=== PATIENT | male | born 1985 | race Two or more races ===

== ENCOUNTER 2023-01-10 21:25 | Inpatient (IN) ==
[2023-01-10] MEDS ORDERED: ACETAMINOPHEN 1,000 MG/100 ML VIAL IV STA (22:17)
[2023-01-10] MEDS ORDERED: ONDANSETRON INJ 2 MG/ML 2 ML VIAL IV STA (22:17)
--- NOTE | 2023-01-10 22:22 | Emergency Department Note ---
History of Present Illness General Chief complaint: Illness Stated complaint: ILLNESS Time Seen by Provider: 01/10/23 22:09 History of Present Illness Maximum Pain Intensity: 10 This is a 37-year-old male presenting to the emergency department for evaluation of nausea, vomiting, dehydration, diarrhea, and chills. Patient was recently started on Bactrim twice daily for 1 month through [facility]. He has been having some lower abdominal discomfort. He took the first dose of the medication around 5 PM, and then ate dinner around 5:30 PM. Shortly after eating he began with symptoms. He rates his discomfort a 10/10. No history of abdominal surgery. No known fever. Patient is hypotensive on arrival to triage and was immediately placed into room C6. Home Medications Medication Instructions Recorded Confirmed Type sulfamethoxazole 800 1 tab PO BID 01/10/23 01/10/23 History mg-trimethoprim 160 mg tablet Allergies Allergy/AdvReac Type Severity Reaction Status Date / Time No Known Allergies Allergy Verified 01/10/23 22:16 Past Med/Surg History Medical History No pertinent past medical history Surgical History No pertinent past surgical history Social History Smoking Status: Light tobacco smoker Tobacco Type: Cigarettes Cigarettes Per Day: 7; Second Hand Exposure: Yes; Do You Dip or Chew Tobacco: No; Tobacco Cessation Education Requested by Patient: No Hx Alcohol Use: No Hx Substance Use: No Preferred Language: Slovenian Communication Ability: Effective Manager Commercial Required: No Beliefs That Will Affect Care: None Current Living Situation: Spouse and Family Other Information That Helps Us Care for You: No Feels Safe at Home: Yes Safety Concerns: Feels Safe At This Time Assistive Devices: None Review of Systems A total of 10 systems reviewed and were otherwise negative Physical Exam Vital Signs Vital Signs - 24 hr 01/10/23 21:42 01/10/23 22:15 01/10/23 22:33 Temperature 36.7 C Temperature Source Oral Pulse Rate 90 94 H Pulse Rate [Right Finger] 102 H Pulse Rhythm [Right Finger] Regular Pulse Strength [Right Finger] Normal Respiratory Rate 18 21 Respiratory Effort / Characteristics Non-Labored Spontaneous Non-Labored Spontaneous Respiratory Depth Normal Normal Respiratory Pattern Regular Regular Blood Pressure 78/45 L Blood Pressure [Left Arm] 94/56 L Blood Pressure Mean 56 Blood Pressure Mean [Left Arm] 68 Blood Pressure Position Sitting Blood Pressure Position [Left Arm] Pulse Oximetry 100 99 Oxygen Delivery Method Room Air Room Air Sepsis Recent Fever Within 48 Hours No Sepsis New/Unexplained Change in Mental Status N/A Sepsis Action Taken by Nursing No Action Required 01/11/23 00:32 01/11/23 00:50 01/11/23 01:50 Temperature Temperature Source Pulse Rate Pulse Rate [Right Finger] 91 H 94 H Pulse Rhythm [Right Finger] Regular Regular Pulse Strength [Right Finger] Normal Normal Respiratory Rate 19 19 Respiratory Effort / Characteristics Non-Labored Spontaneous Non-Labored Spontaneous Respiratory Depth Normal Normal Respiratory Pattern Regular Regular Blood Pressure Blood Pressure [Left Arm] 77/53 L 90/49 L 88/45 L Blood Pressure Mean Blood Pressure Mean [Left Arm] 61 62 59 Blood Pressure Position Blood Pressure Position [Left Arm] Lying Pulse Oximetry 97 100 Oxygen Delivery Method Room Air Room Air Sepsis Recent Fever Within 48 Hours Sepsis New/Unexplained Change in Mental Status Sepsis Action Taken by Nursing VITALS: Vitals are noted on the nurse's note and reviewed by myself. Vital signs with hypotension GENERAL: Well-developed, well-nourished, male, who is ill-appearing but not toxic. He does have occasional shaking chills/rigors. HEAD: Normocephalic atraumatic. MOUTH: Mucous membranes dry NECK: Supple without nuchal rigidity. No lymphadenopathy. No thyromegaly. Cervical spine is nontender. HEART: Regular rate and rhythm without murmurs gallops or rubs. LUNGS: Clear to auscultation bilaterally without wheezes, rales or rhonchi. No retractions or accessory muscle use. ABDOMEN: Positive normal bowel sounds x 4. Soft, nontender, without masses or organomegaly. No guarding or rebound tenderness. MUSCULOSKELETAL: No muscle atrophy, erythema, or edema noted. Full range of motion in all extremities. NEURO: Patient was alert and oriented to person place and time. CN II through XII grossly intact. GCS 15. Course Administered Medications Lactated Ringer's (Lr) 1,000 mls @ 125 mls/hr IV .Q8H JESSICA Stop: 01/11/23 19:12 Last Admin: 01/11/23 04:03 Dose: 125 mls/hr Documented By: ANITHA Discontinued Medications Sodium Chloride (Nss) 1,000 mls @ 999 mls/hr IV .Q1H1M JESSIAC Stop: 01/11/23 00:10 Last Infusion: 01/11/23 00:05 Dose: 0 mls/hr Documented By: Admin: 01/10/23 22:33 Dose: 999 mls/hr Documented By: Infusion: 01/10/23 22:33 Dose: 999 mls/hr Documented By: Admin: 01/10/23 22:29 Dose: 999 mls/hr Documented By: JAVIER Acetaminophen (Ofirmev) 1,000 mg in 100 mls @ 400 mls/hr IV NOW STA Stop: 01/10/23 22:31 Last Infusion: 01/11/23 00:05 Dose: 0 mls/hr Documented By: Admin: 01/10/23 22:31 Dose: 400 mls/hr Documented By: JAVIER Piperacillin Sod/Tazobactam Sod (Zosyn) 4.5 gm in 100 mls @ 200 mls/hr IV NOW ONE Stop: 01/11/23 01:05 Last Infusion: 01/11/23 01:26 Dose: 0 mls/hr Documented By: Admin: 01/11/23 00:45 Dose: 200 mls/hr Documented By: JAVIER Sodium Chloride (Nss) 1,000 mls @ 999 mls/hr IV .Q1H1M JESSICA Stop: 01/11/23 01:45 Last Infusion: 01/11/23 01:49 Dose: 0 mls/hr Documented By: Admin: 01/11/23 00:45 Dose: 999 mls/hr Documented By: JAVIER Ondansetron HCl (Ondansetron Inj 2 Mg/Ml 2 Ml Vial) 4 mg IV NOW STA Stop: 01/10/23 22:18 Last Admin: 01/10/23 22:29 Dose: 4 mg Documented By: JAVIER Medical Decision Making Differential Diagnosis Differential diagnosis: Etiologies such as biliary colic, cholecystitis, hepatitis, pancreatitis, cardiac disease, pancreatitis, gastritis, peptic ulcer disease, appendicitis, cystitis, diverticulitis, mesenteric ischemia, inflammatory bowel disease, ileus, bowel obstruction, testicular/adnexal torsion, aortic pathology, shingles, as well as others were considered Laboratory Data 01/10/23:10 01/10/23 22:10 Lab Results 01/10/23 01/10/23 01/10/23 Range/Units 22:10 22:10 22:10 WBC 8.03 (4.8-10.8) K/ul RBC 5.40 (4.70-6.10) M/uL Hgb 15.5 (14.0-18.0) g/dl Hct 45.0 (42.0-52.0) % MCV 83.3 (80.0-100.0) fL MCH 28.7 (25.0-34.0) pg MCHC 34.4 (32.0-36.0) g/dL RDW Std Deviation 36.1 L (36.4-46.3) fL RDW Coeff of Clair 11.9 (11.5-14.5) % Plt Count 220 (130-400) K/uL MPV 10.0 (9.4-12.4) fL Immature Gran % (Auto) 0.4 % Neut % (Auto) 86.5 % Lymph % (Auto) 10.5 % Pike % (Auto) 2.5 % Eos % (Auto) 0.0 % Baso % (Auto) 0.1 % Neut # (Auto) 6.95 H (1.40-6.50) K/uL Lymph # (Auto) 0.84 L (1.20-3.40) K/uL Pike # (Auto) 0.20 (0.11-0.59) K/uL Eos # (Auto) 0.00 (0.00-0.50) K/uL Baso # (Auto) 0.01 (0.00-0.20) K/uL Immature Gran # (Auto) 0.03 (0.01-0.20) K/uL Sodium 138 (136-145) mmol/L Potassium 3.6 (3.5-5.1) mmol/L Chloride 100 (98-107) mmol/L Carbon Dioxide 29 (21-32) mmol/L Anion Gap 9 (3-11) BUN 18 (6-23) mg/dl Creatinine 1.28 (0.6-1.4) mg/dl Est Cr Clr Drug Dosing 64.0 ml/min Est GFR ( Amer) 82.9 ml/min Est GFR (Non-Af Amer) 71.5 ml/min BUN/Creatinine Ratio 14.1 (10-20) Glucose 93 (70-99(Fasting)) mg/dl Lactate (0.4-2.0) mmol/L Calcium 9.8 (8.6-10.3) mg/dl Magnesium 2.0 (1.7-2.4) mg/dl Total Bilirubin 0.5 (0.2-1.0) mg/dl AST 24 (13-39) U/L ALT 19 (7-52) U/L Alkaline Phosphatase 67 (34-104) U/L Total Protein 8.8 H (6.0-8.3) gm/dl Albumin 5.0 (3.4-5.0) gm/dl Globulin 3.8 (2.5-4.0) gm/dl Albumin/Globulin Ratio 1.3 (0.9-2) Random Cortisol 30.39 mcg/dl Urine Color Urine Appearance (Clear) Urine pH (4.5-7.5) Ur Specific [place] (1.000-1.030) Urine Protein (Negative) Urine Glucose (UA) (Negative) Urine Ketones (Negative) Urine Blood (Negative) Urine Nitrite (Negative) Urine Bilirubin (Negative) Urine Urobilinogen (Negative) Ur Leukocyte Esterase (Negative) Urine WBC (Auto) (0-5) /hpf Urine RBC (Auto) (0-4) /hpf U Hyaline Cast (Auto) (0-5) /lpf U Epithel Cells (Auto) (0-5) /lpf Urine Bacteria (Auto) (Negative) Ur Renal Epithelial Cell Urine Mucus (None Prsent) Stl C. cayetanensis PCR (NotDetected) Stool Rotavirus A PCR (NotDetected) Stl Adenov F 40/41 PCR (NotDetected) Stool Astrovirus (PCR) (NotDetected) Stool Campylobacter PCR (NotDetected) Stl C. diff Tox B Gene (Neg) Stool Cryptosporidium PCR (NotDetected) Stl E.coli Shiga Tox PCR (NotDetected) Stl Enterotoxigenic E PCR (NotDetected) Stool EPEC (PCR) (NotDetected) Stool EAEC (PCR) (NotDetected) Stl E. histolytica PCR (NotDetected) Stool Giardia Lamblia PCR (NotDetected) Stool Salmonella PCR (NotDetected) Stool Sapovirus (PCR) (NotDetected) Stl P. shigelloides PCR (NotDetected) Stl Shigella/EIEC PCR (NotDetected) St Y.enterocolitica PCR (NotDetected) Stool Vibrio (PCR) (NotDetected) Stl Vibrio cholerae PCR (NotDetected) Stl Norovirus GI/GII PCR (NotDetected) Adenovirus (PCR) (NotDetected) B. pertussis DNA (PCR) (NotDetected) B.parapertussis DNA PCR (NotDetected) C. pneumoniae DNA (PCR) (NotDetected) Coronavirus OC43 (PCR) (NotDetected) Coronavirus HKU1 (PCR) (NotDetected) Coronavirus 229E (PCR) (NotDetected) SARS-CoV-2 (PCR) (NotDetected) Coronavirus NL63 (PCR) (NotDetected) Human Metapneumovir PCR (NotDetected) Influenza Type A (PCR) (NotDetected) Influenza Type B (PCR) (NotDetected) M. pneumoniae (PCR) (NotDetected) Parainfluenza 1 (PCR) (NotDetected) Parainfluenza 2 (PCR) (NotDetected) Parainfluenza 3 (PCR) (NotDetected) Parainfluenza 4 (PCR) (NotDetected) RSV (PCR) (NotDetected) Entero/Rhino (PCR) (NotDetected) 01/10/23 01/10/23 01/10/23 Range/Units 22:35 23:00 23:00 WBC (4.8-10.8) K/ul RBC (4.70-6.10) M/uL Hgb (14.0-18.0) g/dl Hct (42.0-52.0) % MCV (80.0-100.0) fL MCH (25.0-34.0) pg MCHC (32.0-36.0) g/dL RDW Std Deviation (36.4-46.3) fL RDW Coeff of Clair (11.5-14.5) % Plt Count (130-400) K/uL MPV (9.4-12.4) fL Immature Gran % (Auto) % Neut % (Auto) % Lymph % (Auto) % Pike % (Auto) % Eos % (Auto) % Baso % (Auto) % Neut # (Auto) (1.40-6.50) K/uL Lymph # (Auto) (1.20-3.40) K/uL Pike # (Auto) (0.11-0.59) K/uL Eos # (Auto) (0.00-0.50) K/uL Baso # (Auto) (0.00-0.20) K/uL Immature Gran # (Auto) (0.01-0.20) K/uL Sodium (136-145) mmol/L Potassium (3.5-5.1) mmol/L Chloride (98-107) mmol/L Carbon Dioxide (21-32) mmol/L Anion Gap (3-11) BUN (6-23) mg/dl Creatinine (0.6-1.4) mg/dl Est Cr Clr Drug Dosing ml/min Est GFR ( Amer) ml/min Est GFR (Non-Af Amer) ml/min BUN/Creatinine Ratio (10-20) Glucose (70-99(Fasting)) mg/dl Lactate (0.4-2.0) mmol/L Calcium (8.6-10.3) mg/dl Magnesium (1.7-2.4) mg/dl Total Bilirubin (0.2-1.0) mg/dl AST (13-39) U/L ALT (7-52) U/L Alkaline Phosphatase (34-104) U/L Total Protein (6.0-8.3) gm/dl Albumin (3.4-5.0) gm/dl Globulin (2.5-4.0) gm/dl Albumin/Globulin Ratio (0.9-2) Random Cortisol mcg/dl Urine Color Dark Yellow Urine Appearance Cloudy A (Clear) Urine pH 5.5 (4.5-7.5) Ur Specific [place] 1.025 (1.000-1.030) Urine Protein 2+ H (Negative) Urine Glucose (UA) Negative (Negative) Urine Ketones Trace H (Negative) Urine Blood Negative (Negative) Urine Nitrite Negative (Negative) Urine Bilirubin 1+ H (Negative) Urine Urobilinogen Negative (Negative) Ur Leukocyte Esterase Trace H (Negative) Urine WBC (Auto) 5-10 H (0-5) /hpf Urine RBC (Auto) 5-10 H (0-4) /hpf U Hyaline Cast (Auto) 10-30 H (0-5) /lpf U Epithel Cells (Auto) >30 H (0-5) /lpf Urine Bacteria (Auto) Negative (Negative) Ur Renal Epithelial Cell Not Reportable Urine Mucus Present A (None Prsent) Stl C. cayetanensis PCR Not Detected (NotDetected) Stool Rotavirus A PCR Not Detected (NotDetected) Stl Adenov F 40/41 PCR Not Detected (NotDetected) Stool Astrovirus (PCR) Not Detected (NotDetected) Stool Campylobacter PCR Not Detected (NotDetected) Stl C. diff Tox B Gene (Neg) Stool Cryptosporidium PCR Not Detected (NotDetected) Stl E.coli Shiga Tox PCR Not Detected (NotDetected) Stl Enterotoxigenic E PCR Not Detected (NotDetected) Stool EPEC (PCR) Not Detected (NotDetected) Stool EAEC (PCR) Not Detected (NotDetected) Stl E. histolytica PCR Not Detected (NotDetected) Stool Giardia Lamblia PCR Not Detected (NotDetected) Stool Salmonella PCR Not Detected (NotDetected) Stool Sapovirus (PCR) Not Detected (NotDetected) Stl P. shigelloides PCR Not Detected (NotDetected) Stl Shigella/EIEC PCR Not Detected (NotDetected) St Y.enterocolitica PCR Not Detected (NotDetected) Stool Vibrio (PCR) Not Detected (NotDetected) Stl Vibrio cholerae PCR Not Detected (NotDetected) Stl Norovirus GI/GII PCR Not Detected (NotDetected) Adenovirus (PCR) Not Detected (NotDetected) B. pertussis DNA (PCR) Not Detected (NotDetected) B.parapertussis DNA PCR Not Detected (NotDetected) C. pneumoniae DNA (PCR) Not Detected (NotDetected) Coronavirus OC43 (PCR) Not Detected (NotDetected) Coronavirus HKU1 (PCR) Not Detected (NotDetected) Coronavirus 229E (PCR) Not Detected (NotDetected) SARS-CoV-2 (PCR) Not Detected (NotDetected) Coronavirus NL63 (PCR) Not Detected (NotDetected) Human Metapneumovir PCR Not Detected (NotDetected) Influenza Type A (PCR) Not Detected (NotDetected) Influenza Type B (PCR) Not Detected (NotDetected) M. pneumoniae (PCR) Not Detected (NotDetected) Parainfluenza 1 (PCR) Not Detected (NotDetected) Parainfluenza 2 (PCR) Not Detected (NotDetected) Parainfluenza 3 (PCR) Not Detected (NotDetected) Parainfluenza 4 (PCR) Not Detected (NotDetected) RSV (PCR) Not Detected (NotDetected) Entero/Rhino (PCR) Not Detected (NotDetected) 01/10/23 01/10/23 01/11/23 Range/Units 23:07 23:11 01:22 WBC (4.8-10.8) K/ul RBC (4.70-6.10) M/uL Hgb (14.0-18.0) g/dl Hct (42.0-52.0) % MCV (80.0-100.0) fL MCH (25.0-34.0) pg MCHC (32.0-36.0) g/dL RDW Std Deviation (36.4-46.3) fL RDW Coeff of Clair (11.5-14.5) % Plt Count (130-400) K/uL MPV (9.4-12.4) fL Immature Gran % (Auto) % Neut % (Auto) % Lymph % (Auto) % Pike % (Auto) % Eos % (Auto) % Baso % (Auto) % Neut # (Auto) (1.40-6.50) K/uL Lymph # (Auto) (1.20-3.40) K/uL [place] # (Auto) (0.11-0.59) K/uL Eos # (Auto) (0.00-0.50) K/uL Baso # (Auto) (0.00-0.20) K/uL Immature Gran # (Auto) (0.01-0.20) K/uL Sodium (136-145) mmol/L Potassium (3.5-5.1) mmol/L Chloride (98-107) mmol/L Carbon Dioxide (21-32) mmol/L Anion Gap (3-11) BUN (6-23) mg/dl Creatinine (0.6-1.4) mg/dl Est Cr Clr Drug Dosing ml/min Est GFR ( Amer) ml/min Est GFR (Non-Af Amer) ml/min BUN/Creatinine Ratio (10-20) Glucose (70-99(Fasting)) mg/dl Lactate 3.4 H* 0.9 (0.4-2.0) mmol/L Calcium (8.6-10.3) mg/dl Magnesium (1.7-2.4) mg/dl Total Bilirubin (0.2-1.0) mg/dl AST (13-39) U/L ALT (7-52) U/L Alkaline Phosphatase (34-104) U/L Total Protein (6.0-8.3) gm/dl Albumin (3.4-5.0) gm/dl Globulin (2.5-4.0) gm/dl Albumin/Globulin Ratio (0.9-2) Random Cortisol mcg/dl Urine Color Urine Appearance (Clear) Urine pH (4.5-7.5) Ur Specific [place] (1.000-1.030) Urine Protein (Negative) Urine Glucose (UA) (Negative) Urine Ketones (Negative) Urine Blood (Negative) Urine Nitrite (Negative) Urine Bilirubin (Negative) Urine Urobilinogen (Negative) Ur Leukocyte Esterase (Negative) Urine WBC (Auto) (0-5) /hpf Urine RBC (Auto) (0-4) /hpf U Hyaline Cast (Auto) (0-5) /lpf U Epithel Cells (Auto) (0-5) /lpf Urine Bacteria (Auto) (Negative) Ur Renal Epithelial Cell Urine Mucus (None Prsent) Stl C. cayetanensis PCR (NotDetected) Stool Rotavirus A PCR (NotDetected) Stl Adenov F 40/41 PCR (NotDetected) Stool Astrovirus (PCR) (NotDetected) Stool Campylobacter PCR (NotDetected) Stl C. diff Tox B Gene Negative Cdiff Gene (Neg) Stool Cryptosporidium PCR (NotDetected) Stl E.coli Shiga Tox PCR (NotDetected) Stl Enterotoxigenic E PCR (NotDetected) Stool EPEC (PCR) (NotDetected) Stool EAEC (PCR) (NotDetected) Stl E. histolytica PCR (NotDetected) Stool Giardia Lamblia PCR (NotDetected) Stool Salmonella PCR (NotDetected) Stool Sapovirus (PCR) (NotDetected) Stl P. shigelloides PCR (NotDetected) Stl Shigella/EIEC PCR (NotDetected) St Y.enterocolitica PCR (NotDetected) Stool Vibrio (PCR) (NotDetected) Stl Vibrio cholerae PCR (NotDetected) Stl Norovirus GI/GII PCR (NotDetected) Adenovirus (PCR) (NotDetected) B. pertussis DNA (PCR) (NotDetected) B.parapertussis DNA PCR (NotDetected) C. pneumoniae DNA (PCR) (NotDetected) Coronavirus OC43 (PCR) (NotDetected) Coronavirus HKU1 (PCR) (NotDetected) Coronavirus 229E (PCR) (NotDetected) SARS-CoV-2 (PCR) (NotDetected) Coronavirus NL63 (PCR) (NotDetected) Human Metapneumovir PCR (NotDetected) Influenza Type A (PCR) (NotDetected) Influenza Type B (PCR) (NotDetected) M. pneumoniae (PCR) (NotDetected) Parainfluenza 1 (PCR) (NotDetected) Parainfluenza 2 (PCR) (NotDetected) Parainfluenza 3 (PCR) (NotDetected) Parainfluenza 4 (PCR) (NotDetected) RSV (PCR) (NotDetected) Entero/Rhino (PCR) (NotDetected) Imaging Data Radiologist's Impression: Abdomen/Pelvis CT 01/10/23 22:16 CT SCAN OF THE ABDOMEN AND PELVIS WITHOUT IV CONTRAST CLINICAL HISTORY: Lower abdominal pain. Nausea and vomiting. Diarrhea. COMPARISON STUDY: Abdominal CT dated 07/21/2022. TECHNIQUE: CT scan of the abdomen and pelvis is performed from the lung bases to the proximal femora. Images are reviewed in the axial, sagittal, and coronal planes. IV contrast was not administered for this examination. Note that the examination is suboptimal without oral and IV contrast. A dose lowering technique was utilized adhering to the principles of ALARA. CT DOSE: 415.92 mGy.cm FINDINGS: Lung bases: The heart is normal in size and without pericardial effusion. The lung bases are clear. Liver: The unenhanced liver is normal in size, contour, and attenuation. There is no intrahepatic biliary ductal dilatation. Gallbladder: Unremarkable. Spleen: Normal in size and attenuation. Pancreas: Unremarkable. Adrenal glands: Unremarkable. Kidneys: The unenhanced kidneys are normal in size and without hydronephrosis. There is a punctate nonobstructing right renal calculus. No left renal calculi are identified and there is no ureteral stone. There is no evidence of contour deforming renal mass lesion. Abdominal vasculature: The abdominal aorta is normal in course and caliber. Bowel: There is no bowel obstruction. The appendix is well-visualized and normal. Peritoneum: There is no intraperitoneal free air or abdominal ascites. Lymphadenopathy: None. Pelvic viscera: The bladder wall appears thickened. The prostate and seminal vesicles are normal as imaged. Skeletal structures: No lytic or blastic lesions are seen. IMPRESSION: 1. The bladder wall appears thickened. Correlate with clinical findings and urinalysis. 2. Punctate nonobstructing right renal calculus. 3. Additional findings as above. ACT 112: Negative or not required by law. Electronically signed by: Dick Hughes M.D. 01/10/2023 11:36 PM MDM Narrative Physical exam and history were performed. Nursing notes, EMR, and Medication List were personally reviewed. No social concerns were identified as barriers to patients care. Patient appears to have nausea, vomiting, diarrhea, and abdominal pain. He is hypotensive on arrival. Patient was seen immediately upon presentation to his room. IV access x2 was established. Patient was hydrated with 2 L normal saline and sent to CT scan for imaging. Viral URI panel was performed, and stool sample was collected. I did verify the patient was given Bactrim for 30 days, and I am suspicious this is related to a prostatitis diagnosis. Case was discussed with my attending physician, Dr. Warren, who remained involved in care decision making. Patient's blood work is as above and was reviewed. He does not have a significantly elevated white blood cell count or gross anemia. Lactic is elevated at 3.6 and patient was given an additional liter of fluids as he is having hypotensive episodes. Bio fire is negative. Stool studies are negative. Patient urine is quite concerning with mucus, caio ase, white cells, and protein. CT scan does not show obvious etiology of his symptoms, and does reveal a thickening bladder. Overall the patient does not appear well for discharge home. He continues to be hypotensive and his lactic is elevated. He was given Zosyn here in the ER. Repeat lactic did improved to 0.9. I have concern for sepsis. Case was discussed with the on-call hospitalist team, who agreed to evaluate the patient here in the ER. Please see their dictation for further patient course, plan, disposition. The chart was completed utilizing [employer] Speech Voice Recognition Software. Grammatical errors, random word insertions, pronoun errors, and incomplete sentences are an occasional consequence of this system due to software limitations, ambient noise, and hardware issues. Any formal questions or concerns about the content, text, or information contained within the body of this dictation should be directly addressed to the provider for clarification. . Impression & Plan Sepsis, Hypotension Discharge Plan Visit Data Chief Complaint: Illness Stated Complaint: ILLNESS ED Provider: Shamir Warren ED Midlevel Provider: Fredo Ramos Discharge Problem: Sepsis, Hypotension Patient Disposition: Admitted As Inpatient Discharge Instructions Interventions: ED Discharge Assessment Last Done: 01/11/23 02:52
[2023-01-10] MEDS: SODIUM CHLORIDE 0.9% 1,000 ML IV SCH ×2 (22:29→22:33)
[2023-01-10 22:34] LABS: Basophils # (auto) 0.01 K/uL (0.00-0.20); Basophils % (auto) 0.1 %; Hemoglobin 15.5 g/dl (14.0-18.0); Immature Granulocytes # (auto) 0.03 K/uL (0.01-0.20); Immature Granulocytes % (auto) 0.4 %; Lymphocytes # (auto) 0.84 K/uL (1.20-3.40); Lymphocytes % (auto) 10.5 %; Mean Corpuscular Hemoglobin 28.7 pg (25.0-34.0); Mean Corpuscular Hgb Conc 34.4 g/dL (32.0-36.0); Mean Corpuscular Volume 83.3 fL (80.0-100.0); Monocytes % (auto) 2.5 %; Neutrophils # (auto) 6.95 K/uL (1.40-6.50); Neutrophils % (auto) 86.5 %; Platelet Count 220 K/uL (130-400); RDW Coefficient of Variation 11.9 % (11.5-14.5); RDW Standard Deviation 36.1 fL (36.4-46.3); White Blood Count 8.03 K/ul (4.8-10.8)
[2023-01-10 22:42] LABS: Albumin Globulin Ratio 1.3 (0.9-2); BUN Creatinine Ratio 14.1 (10-20); Bilirubin,Total 0.5 mg/dl (0.2-1.0); Calcium 9.8 mg/dl (8.6-10.3); Est GFR (African American) 82.9 ml/min; Est GFR (Non-African American) 71.5 ml/min; Globulin 3.8 gm/dl (2.5-4.0); Potassium 3.6 mmol/L (3.5-5.1); Total Protein 8.8 gm/dl (6.0-8.3)
[2023-01-10 23:32] LABS: Appearance Urine Cloudy (Clear); Bacteria Urine Automated Negative (Negative); Blood Urine Negative (Negative); Color Urine Dark Yellow; Epithelial Cell Urine Auto >30 /lpf (0-5); Glucose Urine UA Negative (Negative); Ketones Urine Trace (Negative); Leukocyte Esterase Urine Trace (Negative); Nitrite Urine Negative (Negative); Protein Urine 2+ (Negative); Specific Gravity Urine 1.025 (1.000-1.030); Urobilinogen Urine Negative (Negative); pH Urine 5.5 (4.5-7.5)
--- NOTE | 2023-01-10 23:39 | CT Scan Report ---
CT SCAN OF THE ABDOMEN AND PELVIS WITHOUT IV CONTRAST CLINICAL HISTORY: Lower abdominal pain. Nausea and vomiting. Diarrhea. COMPARISON STUDY: Abdominal CT dated 07/21/2022. TECHNIQUE: CT scan of the abdomen and pelvis is performed from the lung bases to the proximal femora. Images are reviewed in the axial, sagittal, and coronal planes. IV contrast was not administered for this examination. Note that the examination is suboptimal without oral and IV contrast. A dose lower ing technique was utilized adhering to the principles of ALARA. CT DOSE: 415.92 mGy.cm FINDINGS: Lung bases: The heart is normal in size and without pericardial effusion. The lung bases are clear. Liver: The unenhanced liver is normal in size, contour, and attenuation. There is no intrahepatic mayito iary ductal dilatation. Gallbladder: Unremarkable. Spleen: Normal in size and attenuation. Pancreas: Unremarkable. Adrenal glands: Unremarkable. Kidneys: The unenhanced kidneys are normal in size and without hydronephrosis. There is a punctate no nobstructing right renal calculus. No left renal calculi are identified and there is no ureteral ston e. There is no evidence of contour deforming renal mass lesion. Abdominal vasculature: The abdominal aorta is normal in course and caliber. Bowel: There is no bowel obstruction. The appendix is well-visualized and normal. Peritoneum: There is no intraperitoneal free air or abdominal ascites. Lymphadenopathy: None. Pelvic viscera: The bladder wall appears thickened. The prostate and seminal vesicles are normal as i iliana. Skeletal structures: No lytic or blastic lesions are seen. IMPRESSION: 1. The bladder wall appears thickened. Correlate with clinical findings and urinalysis. 2. Punctate nonobstructing right renal calculus. 3. Additional findings as above. ACT 112: Negative or not required by law. Electronically signed by: Dick Hughes M.D. 01/10/2023 11:36 PM
[2023-01-10 23:43] LABS: Bilirubin Urine 1+ (Negative)
[2023-01-11 00:10] LABS: Mucus Urine Present (None Prsent)
[2023-01-11] MEDS ORDERED: PIPERACILLIN/TAZOBACTAM 4.5 GM/100 ML BAG IV ONE (00:36)
[2023-01-11] MEDS ORDERED: SODIUM CHLORIDE 0.9% 1,000 ML IV SCH (00:45)
[2023-01-11 00:55] LABS: Adenovirus F 40/41 PCR Not Detected (NotDetected); Astrovirus PCR Not Detected (NotDetected); Campylobacter PCR Not Detected (NotDetected); Cryptosporidium PCR Not Detected (NotDetected); Cyclospora cayetanensis PCR Not Detected (NotDetected); Entamoeba histolytica PCR Not Detected (NotDetected); Enteroaggregative E.coli(EAEC) Not Detected (NotDetected); Enteropathogenic E.coli (EPEC) Not Detected (NotDetected); Enterotoxigenic E.coli (ETEC) Not Detected (NotDetected); Giardia lamblia PCR Not Detected (NotDetected); Norovirus GI/GII PCR Not Detected (NotDetected); Plesiomonas shigelloides PCR Not Detected (NotDetected); Rotavirus A PCR Not Detected (NotDetected); Salmonella PCR Not Detected (NotDetected); Sapovirus PCR Not Detected (NotDetected); Shiga-like Toxin E.coli (STEC) Not Detected (NotDetected); Shigella/Enteroinvasive E.coli Not Detected (NotDetected); Vibrio cholerae PCR Not Detected (NotDetected); Vibrio species PCR Not Detected (NotDetected); Yersinia enterocolitica PCR Not Detected (NotDetected)
--- NOTE | 2023-01-11 01:37 | History & Physical Report ---
Date of Service January 11, 2023 Assessment & Plan (1) Hypotension: Plan: 37yo male with no significant past medical or surgical history presenting with acute onset of nausea/vomiting/diarrhea as well as chills, body aches and hypotension. Patient's symptoms described as fairly profound - suspect a large amount of volume loss in a short period of time likely contributing to hypotension. Patient does appear dry on exam as well. Renal function and electroltyes intact. Lactate has improved from 3.4 --> 0.9 after IVF Possible infectious source considered as well. Patient recently started on Bactrim for presumed acute bacterial prostatitis. Possible bacteremia? As above, biofire panel for URI as well as stool panel are NEGATIVE. Random Cortisol =30.39, do not suspect deficiency -Admit to PCU for now, low threshold for MICU transfer should blood pressure worsen -Follow cultures, blood and urine -Check Lipase, Procalcitonin with AM labs -Continue IVF - LR at 125mL/hr -Ceftriaxone 1gm IV daily -Zofran PRN -Tylenol PRN F/E/N - LR at 125mL/hr ordered, electrolytes WNL, regular diet as tolerated Ppx - Low risk for DVT Code - Full Dispo -Admit to PCU History of Present Illness Chief Complaint: Hypotension Primary Care Provider: [facility] Rufina Sloan is a pleasant 37yo male with no significant past medical or surgical history presenting with hypotension. Patient reports having some perineal, penile/testicular and pelvic pain for the last several days. He was seen by his PCPon 01/10/23 and had a urine sample obtained which revealed some hematuria. He was ultimately prescribed Bactrim BID x 4 week course for presumed prostatitis. Patient was overall feeling well today although he didn't eat much. At dinner he ate chacko pie with his family and took his first dose of Bactrim. Shortly after, around 19:45, he developed nausea with estimated 15-16 episodes of non-b loody/non-bilious vomiting as well as multiple episodes of watery diarrhea (every 10 minutes). His friend accompanied him to the ER. While in the waiting room the patient developed chills and rigors as well as pain in his back. He reports feeling dizzy as well. Otherwise denies fever, chest pain, cough, SOB. His family ate the same dinner and is not ill. No sick contacts. Has never been on Bactrim before. In the ER he was found to be hypotensive - BP 78/45. He has since been given 3L NSS with some blood pressure improvement - last measurement 88/45, similar in both extremities ER Course: NSS x 3L Zofran 4m IV Tylenol 1gm Zosyn 4.5gm Allergies Allergy/AdvReac Type Severity Reaction Status Date / Time No Known Allergies Allergy Verified 01/10/23 22:16 Home Medications Medication Instructions Recorded Confirmed Type sulfamethoxazole 800 1 tab PO BID 01/10/23 01/10/23 History mg-trimethoprim 160 mg tablet Past Med/Surg History Medical History No pertinent past medical history Surgical History No pertinent past surgical history Social History Smoking Status: Current every day smoker Tobacco Type: Cigarettes Preferred Language: Italian Feels Safe at Home: Yes Review of Systems Review of Systems: All systems reviewed & are unremarkable except as noted in HPI & below Physical Exam Physical Exam: General: patient appears ill, oriented x 4, answering questions appropriately and following commands. Occasional rigors. Skin: warm, dry, intact, no rashes or lesions HEENT: NC/AT, PERRL, EOMI, anicteric sclera, +conjunctival injection bilaterally, external ear normal to inspection and nontender, nares patent, dry lips and mucus membranes, dentition intact, no oropharyngeal lesions, neck supple, trachea midline, no LAD, no thyromegaly, no JVD Heart: +S1/S2, regular, tachycardic, no m/r/g Lungs: equal air entry bilaterally, no rales/rhonchi/wheezes Abd: +BS, soft, ND, tender in pelvic region without rebound/guarding/peritoneal signs, no masses/organomegaly/ascites Ext: warm, 2+ pulses in UE/LE bilaterally, no clubbing/cyanosis or edema Neuro: nonfocal, patient AA&O x 4, speech intact, no facial droop, moving all extremities on command with equal strength 5/5 Results & Data Results & Data Vital Signs (Past 12 Hours) Vital Signs Temp Pulse Pulse Resp BP BP Pulse Ox 01/11/23 00:50 90/49 L 01/11/23 00:32 91 H 19 77/53 L 97 01/10/23 22:33 102 H 21 94/56 L 99 01/10/23 22:15 94 H 01/10/23 21:42 36.7 C 90 18 78/45 L 100 O2 Del Method 01/11/23 00:50 01/11/23 00:32 Room Air 01/10/23 22:33 Room Air 01/10/23 22:15 01/10/23 21:42 Room Air Laboratory Results Laboratory Results WBC 8.03 K/ul (4.8-10.8) 01/10/23 22:10 RBC 5.40 M/uL (4.70-6.10) 01/10/23 22:10 Hgb 15.5 g/dl (14.0-18.0) 01/10/23 22:10 Hct 45.0 % (42.0-52.0) 01/10/23 22:10 MCV 83.3 fL (80.0-100.0) 01/10/23 22:10 MCH 28.7 pg (25.0-34.0) 01/10/23 22:10 MCHC 34.4 g/dL (32.0-36.0) 01/10/23 22:10 RDW Std Deviation 36.1 fL (36.4-46.3) L 01/10/23 22:10 RDW Coeff of Clair 11.9 % (11.5-14.5) 01/10/23 22:10 Plt Count 220 K/uL (130-400) 01/10/23 22:10 MPV 10.0 fL (9.4-12.4) 01/10/23 22:10 Immature Gran % (Auto) 0.4 % 01/10/23 22:10 Neut % (Auto) 86.5 % 01/10/23 22:10 Lymph % (Auto) 10.5 % 01/10/23 22:10 [place]imble % (Auto) 2.5 % 01/10/23 22:10 Eos % (Auto) 0.0 % 01/10/23 22:10 Baso % (Auto) 0.1 % 01/10/23 22:10 Neut # (Auto) 6.95 K/uL (1.40-6.50) H 01/10/23 22:10 Lymph # (Auto) 0.84 K/uL (1.20-3.40) L 01/10/23 22:10 Trimble # (Auto) 0.20 K/uL (0.11-0.59) 01/10/23 22:10 Eos # (Auto) 0.00 K/uL (0.00-0.50) 01/10/23 22:10 Baso # (Auto) 0.01 K/uL (0.00-0.20) 01/10/23 22:10 Immature Gran # (Auto) 0.03 K/uL (0.01-0.20) 01/10/23 22:10 Sodium 138 mmol/L (136-145) 01/10/23 22:10 Potassium 3.6 mmol/L (3.5-5.1) 01/10/23 22:10 Chloride 100 mmol/L (98-107) 01/10/23 22:10 Carbon Dioxide 29 mmol/L (21-32) 01/10/23 22:10 Anion Gap 9 (3-11) 01/10/23 22:10 BUN 18 mg/dl (6-23) 01/10/23 22:10 Creatinine 1.28 mg/dl (0.6-1.4) 01/10/23 22:10 Est Cr Clr Drug Dosing 64.0 ml/min 01/10/23 22:10 Est GFR ( Amer) 82.9 ml/min 01/10/23 22:10 Est GFR (Non-Af Amer) 71.5 ml/min 01/10/23 22:10 BUN/Creatinine Ratio 14.1 (10-20) 01/10/23 22:10 Glucose 93 mg/dl (70-99(Fasting)) 01/10/23 22:10 Lactate 0.9 mmol/L (0.4-2.0) 01/11/23 01:22 Calcium 9.8 mg/dl (8.6-10.3) 01/10/23 22:10 Magnesium 2.0 mg/dl (1.7-2.4) 01/10/23 22:10 Total Bilirubin 0.5 mg/dl (0.2-1.0) 01/10/23 22:10 AST 24 U/L (13-39) 01/10/23 22:10 ALT 19 U/L (7-52) 01/10/23 22:10 Alkaline Phosphatase 67 U/L (34-104) 01/10/23 22:10 Total Protein 8.8 gm/dl (6.0-8.3) H 01/10/23 22:10 Albumin 5.0 gm/dl (3.4-5.0) 01/10/23 22:10 Globulin 3.8 gm/dl (2.5-4.0) 01/10/23 22:10 Albumin/Globulin Ratio 1.3 (0.9-2) 01/10/23 22:10 Random Cortisol 30.39 mcg/dl 01/10/23 22:10 Urine Color Dark Yellow 01/10/23 23:00 Urine Appearance Cloudy (Clear) A 01/10/23 23:00 Urine pH 5.5 (4.5-7.5) 01/10/23 23:00 Ur Specific Hondo 1.025 (1.000-1.030) 01/10/23 23:00 Urine Protein 2+ (Negative) H 01/10/23 23:00 Urine Glucose (UA) Negative (Negative) 01/10/23 23:00 Urine Ketones Trace (Negative) H 01/10/23 23:00 Urine Blood Negative (Negative) 01/10/23 23:00 Urine Nitrite Negative (Negative) 01/10/23 23:00 Urine Bilirubin 1+ (Negative) H 01/10/23 23:00 Urine Urobilinogen Negative (Negative) 01/10/23 23:00 Ur Leukocyte Esterase Trace (Negative) H 01/10/23 23:00 Urine WBC (Auto) 5-10 /hpf (0-5) H 01/10/23 23:00 Urine RBC (Auto) 5-10 /hpf (0-4) H 01/10/23 23:00 U Hyaline Cast (Auto) 10-30 /lpf (0-5) H 01/10/23 23:00 U Epithel Cells (Auto) >30 /lpf (0-5) H 01/10/23 23:00 Urine Bacteria (Auto) Negative (Negative) 01/10/23 23:00 Ur Renal Epithelial Cell Not Reportable 01/10/23 23:00 Urine Mucus Present (None Prsent) A 01/10/23 23:00 Stl C. cayetanensis PCR Not Detected (NotDetected) 01/10/23 23:00 Stool Rotavirus A PCR Not Detected (NotDetected) 01/10/23 23:00 Stl Adenov F 40/41 PCR Not Detected (NotDetected) 01/10/23 23:00 Stool Astrovirus (PCR) Not Detected (NotDetected) 01/10/23 23:00 Stool Campylobacter PCR Not Detected (NotDetected) 01/10/23 23:00 Stl C. diff Tox B Gene Negative Cdiff Gene (Neg) 01/10/23 23:11 Stool Cryptosporidium PCR Not Detected (NotDetected) 01/10/23 23:00 Stl E.coli Shiga Tox PCR Not Detected (NotDetected) 01/10/23 23:00 Stl Enterotoxigenic E PCR Not Detected (NotDetected) 01/10/23 23:00 Stool EPEC (PCR) Not Detected (NotDetected) 01/10/23 23:00 Stool EAEC (PCR) Not Detected (NotDetected) 01/10/23 23:00 Stl E. histolytica PCR Not Detected (NotDetected) 01/10/23 23:00 Stool Giardia Lamblia PCR Not Detected (NotDetected) 01/10/23 23:00 Stool Salmonella PCR Not Detected (NotDetected) 01/10/23 23:00 Stool Sapovirus (PCR) Not Detected (NotDetected) 01/10/23 23:00 Stl P. shigelloides PCR Not Detected (NotDetected) 01/10/23 23:00 Stl Shigella/EIEC PCR Not Detected (NotDetected) 01/10/23 23:00 St Y.enterocolitica PCR Not Detected (NotDetected) 01/10/23 23:00 Stool Vibrio (PCR) Not Detected (NotDetected) 01/10/23 23:00 Stl Vibrio cholerae PCR Not Detected (NotDetected) 01/10/23 23:00 Stl Norovirus GI/GII PCR Not Detected (NotDetected) 01/10/23 23:00 Adenovirus (PCR) Not Detected (NotDetected) 01/10/23 22:35 B. pertussis DNA (PCR) Not Detected (NotDetected) 01/10/23 22:35 B.parapertussis DNA PCR Not Detected (NotDetected) 01/10/23 22:35 C. pneumoniae DNA (PCR) Not Detected (NotDetected) 01/10/23 22:35 Coronavirus OC43 (PCR) Not Detected (NotDetected) 01/10/23 22:35 Coronavirus HKU1 (PCR) Not Detected (NotDetected) 01/10/23 22:35 Coronavirus 229E (PCR) Not Detected (NotDetected) 01/10/23 22:35 SARS-CoV-2 (PCR) Not Detected (NotDetected) 01/10/23 22:35 Coronavirus NL63 (PCR) Not Detected (NotDetected) 01/10/23 22:35 Human Metapneumovir PCR Not Detected (NotDetected) 01/10/23 22:35 Influenza Type A (PCR) Not Detected (NotDetected) 01/10/23 22:35 Influenza Type B (PCR) Not Detected (NotDetected) 01/10/23 22:35 M. pneumoniae (PCR) Not Detected (NotDetected) 01/10/23 22:35 Parainfluenza 1 (PCR) Not Detected (NotDetected) 01/10/23 22:35 Parainfluenza 2 (PCR) Not Detected (NotDetected) 01/10/23 22:35 Parainfluenza 3 (PCR) Not Detected (NotDetected) 01/10/23 22:35 Parainfluenza 4 (PCR) Not Detected (NotDetected) 01/10/23 22:35 RSV (PCR) Not Detected (NotDetected) 01/10/23 22:35 Entero/Rhino (PCR) Not Detected (NotDetected) 01/10/23 22:35 Impressions Abdomen/Pelvis CT 01/10/23 22:16 CT SCAN OF THE ABDOMEN AND PELVIS WITHOUT IV CONTRAST CLINICAL HISTORY: Lower abdominal pain. Nausea and vomiting. Diarrhea. COMPARISON STUDY: Abdominal CT dated 07/21/2022. TECHNIQUE: CT scan of the abdomen and pelvis is performed from the lung bases to the proximal femora. Images are reviewed in the axial, sagittal, and coronal planes. IV contrast was not administered for this examination. Note that the examination is suboptimal without oral and IV contrast. A dose lowering technique was utilized adhering to the principles of ALARA. CT DOSE: 415.92 mGy.cm FINDINGS: Lung bases: The heart is normal in size and without pericardial effusion. The lung bases are clear. Liver: The unenhanced liver is normal in size, contour, and attenuation. There is no intrahepatic biliary ductal dilatation. Gallbladder: Unremarkable. Spleen: Normal in size and attenuation. Pancreas: Unremarkable. Adrenal glands: Unremarkable. Kidneys: The unenhanced kidneys are normal in size and without hydronephrosis. There is a punctate nonobstructing right renal calculus. No left renal calculi are identified and there is no ureteral stone. There is no evidence of contour deforming renal mass lesion. Abdominal vasculature: The abdominal aorta is normal in course and caliber. Bowel: There is no bowel obstruction. The appendix is well-visualized and normal. Peritoneum: There is no intraperitoneal free air or abdominal ascites. Lymphadenopathy: None. Pelvic viscera: The bladder wall appears thickened. The prostate and seminal vesicles are normal as imaged. Skeletal structures: No lytic or blastic lesions are seen. IMPRESSION: 1. The bladder wall appears thickened. Correlate with clinical findings and urinalysis. 2. Punctate nonobstructing right renal calculus. 3. Additional findings as above. ACT 112: Negative or not required by law. Electronically signed by: Dick Hughes M.D. 01/10/2023 11:36 PM PG Care Time/CCT Total # of Minutes Spent Total Time Spent with Patient: Total time spent is greater than 50% in coordination of care (as documented) at patient's floor/unit and/or counseling patient: Coding Level of Care Code 41642 INT INP/OBS CARE 2/55MIN Diagnoses Hypotension I95.9
[2023-01-11 01:54] LABS: Adenovirus PCR Not Detected (NotDetected); Bordetella parapertussis PCR Not Detected (NotDetected); Bordetella pertussis PCR Not Detected (NotDetected); Chlamydia pneumoniae PCR Not Detected (NotDetected); Coronavirus 229E PCR Not Detected (NotDetected); Coronavirus CoV-2 (COVID19)PCR Not Detected (NotDetected); Coronavirus HKU1 PCR Not Detected (NotDetected); Coronavirus NL63 PCR Not Detected (NotDetected); Coronavirus OC43PCR Not Detected (NotDetected); Human Metapneumovirus PCR Not Detected (NotDetected); Influenza A PCR Not Detected (NotDetected); Influenza B PCR Not Detected (NotDetected); Mycoplasma pneumoniae PCR Not Detected (NotDetected); Parainfluenza Virus 1 PCR Not Detected (NotDetected); Parainfluenza Virus 2 PCR Not Detected (NotDetected); Parainfluenza Virus 3 PCR Not Detected (NotDetected); Parainfluenza Virus 4 PCR Not Detected (NotDetected); Respiratory Syncytial VirusPCR Not Detected (NotDetected); Rhinovirus/Enterovirus PCR Not Detected (NotDetected)
[2023-01-11] MEDS ORDERED: ONDANSETRON INJ 2 MG/ML 2 ML VIAL IV PRN (03:13)
[2023-01-11] MEDS: LACTATED RINGER'S 1,000 ML IV SCH ×3 (04:03→23:29)
[2023-01-11 06:46] LABS: Albumin Level 3.4 gm/dl (3.4-5.0); BUN Creatinine Ratio 15.2 (10-20); Bilirubin Direct 0.1 mg/dl (0-0.2); Bilirubin,Total 0.6 mg/dl (0.2-1.0); Calcium 7.8 mg/dl (8.6-10.3); Creatinine Clr Calc Pharmacy 67.3 ml/min; Est GFR (African American) 79.9 ml/min; Est GFR (Non-African American) 68.9 ml/min; Potassium 3.9 mmol/L (3.5-5.1); Total Protein 5.8 gm/dl (6.0-8.3)
[2023-01-11 06:57] LABS: Hematocrit (blood only) 35.4 % (42.0-52.0); Hemoglobin 11.9 g/dl (14.0-18.0); Mean Corpuscular Hemoglobin 28.6 pg (25.0-34.0); Mean Corpuscular Hgb Conc 33.6 g/dL (32.0-36.0); Mean Corpuscular Volume 85.1 fL (80.0-100.0); Mean Platelet Volume 10.5 fL (9.4-12.4); Platelet Count 169 K/uL (130-400); RDW Coefficient of Variation 12.1 % (11.5-14.5); RDW Standard Deviation 37.1 fL (36.4-46.3); Red Blood Count 4.16 M/uL (4.70-6.10); White Blood Count 10.12 K/ul (4.8-10.8)
[2023-01-11] MEDS ORDERED: VANCOMYCIN HCL 1,250 MG in SODIUM CHLORIDE 0.9% 500 ML IV ONE (08:12)
[2023-01-11] MEDS ORDERED: VANCOMYCIN CONSULT ACTIVE PRN (08:12)
[2023-01-11] MEDS: ACETAMINOPHEN 325 MG TAB PO PRN ×3 (08:16→20:48)
[2023-01-11] MEDS ORDERED: VANCOMYCIN HCL 1,500 MG in SODIUM CHLORIDE 0.9% 500 ML IV ONE (08:30)
[2023-01-11] MEDS ORDERED: cefTRIAXone SODIUM 1,000 MG in DEXTROSE 5 % MINI-B 50 ML IV SCH (09:00)
--- NOTE | 2023-01-11 09:45 | XRay Report ---
XR chest 1V portable HISTORY: sepsis COMPARISON: Chest 12/06/2022. FINDINGS: No pneumothorax. No pleural effusions. The cardiac silhouette is normal in size. The lungs are clear. No acute fractures identified. IMPRESSION: No acute process. ACT 112: Negative or not required by law. Electronically signed by: Darrick Hankins M.D. 01/11/2023 9:43 AM
[2023-01-11] MEDS: PIPERACILLIN/TAZOBACTAM 4.5 GM in DEXTROSE 5% MINI-B 100 ML IV SCH ×2 (10:03→15:46)
--- NOTE | 2023-01-11 10:42 | Pharmacy Report ---
Pharmacy PK ABX Note - Date of Service January 11, 2023 - Assessment and Plan Assessment 37 year old M receiving empiric vancomycin and Zosyn for concern of sepsis w/ currently unknown source (possible acute bacterial prostatitis). Patient is hypotensive w/ Tmax of 39.4 C this AM. Patient recently prescribed prolonged course of Bactrim. Pertinent microbiologic data includes: Blood and urine cultures pending. SCr is currently above baseline. Day # 1 of antimicrobial therapy. Plan Vancomycin * Loading dose: 1500 mg IV x 1 * Maintenance dose: 1000 mg IV every 12 hours * Regimen is predicted to result in supratherapeutic AUC/EVAN once at steady state, but okay first 48 hours of therapy (i.e. AUC/EVAN of 400-600 mg/L.hr) * Chose increased dose initially to prevent undertreatment given SCr of 1.32 mg/dL is above baseline (~1 mg/dL) and patient is receiving maintenance fluids @125 mL/hr * Anticipating improvement in renal function tomorrow, but if not, dose can be reduced tomorrow morning * Will order vanco level if therapy is to be extended beyond 48 hours Zosyn * 4.5 g IV q8h - appropriately dosed, no change Pharmacy will continue to follow and will adjust dose/frequency as necessary. Thank you. Pharmacy has transitioned to AUC monitoring for vancomycin. AUC/EVAN is the preferred PK/PD target and is associated with decreased risk of nephrotoxicity compared to traditional trough targets.
--- NOTE | 2023-01-11 10:55 | Hospitalist Progress Note ---
Date of Service January 11, 2023 Assessment & Plan (1) Sepsis: Plan: Suspected source prostatitis/urine Given significantly elevated procalcitonin and low MAP will broaden antibiotics to Zosyn and vancomycin pending culture results No anal sexual intercourse Will add chlamydia/gonorrhea tests to urine PSA with AM labs Repeat procalcitonin on Saturday Otherwise await urine and blood cultures to determine ongoing antibiotic coverage Allow MAP down to 60 as lactate normal and mentating normal at this level. Lower than this should prompt a re-evaluation for possible need of vasopressors (2) Hypotension: (3) Prostatitis: (4) Diarrhea: Plan: Occurred after original pelvic pain. Suspect secondary to antibiotics +/- food poisoning. Stool Biofire and c. diff PCR negative Loperamide PRN Plan VTE Prophylaxis - low risk given young age Diet - regular Disposition - continue on PCU Admission and Anticipated Discharge Date Admission Date: January 11, 2023 Subjective Continues to have pelvic pain. Fever this morning (T max 39.4). MAP <65 although mentating normally and lactate improved. No dysuria. No URI symptoms. No flank pain. Having diarrhea since yesterday. No abdominal pain - he feels is is more pelvic. No flank pain. No headache or neck stiffness. No testicular pain or swelling. No anal sex. One sexual partner - his . Review of Systems Review of Systems: All systems reviewed & are unremarkable except as noted in HPI & below Physical Exam Constitutional: WD/WN, vitals as above Eyes: + anicteric sclerae; normal pupil size ENMT: external ear and nose normal, oropharynx normal Respiratory: normal respiratory effort, lungs clear to auscultation Cardiovascular: RRR, no murmur, no edema Gastrointestinal (Abdomen): normal bowel sounds, soft, nontender, no hepatosplenomegaly Musculoskeletal: no cyanosis or clubbing, extremities motor strength 5/5 Skin: no rashes, warm and dry Psychiatric: A+Ox3, euthymic affect Genitourinary: no CVA tenderness Results & Data Results & Data Vital Signs (Past 12 Hours) Vital Signs Temp Pulse Pulse Resp BP Pulse Ox O2 Del Method 01/11/23 07:20 39.4 C H 105 H 18 85/47 L 97 Room Air 01/11/23 06:33 108 H 20 87/51 L 01/11/23 03:13 94/54 L 01/11/23 03:13 36.9 C 68 16 92 Room Air 01/11/23 03:13 96 H 01/11/23 03:13 36.9 C 68 16 91/57 L 92 Room Air 01/11/23 02:58 36.9 C 71 18 91/57 L 92 Room Air 01/11/23 02:10 100 H 01/11/23 01:50 94 H 19 88/45 L 100 Room Air 01/11/23 00:50 90/49 L 01/11/23 00:32 91 H 19 77/53 L 97 Room Air PG Care Time/CCT Total # of Minutes Spent Total Time Spent with Patient: Total time spent is greater than 50% in coordination of care (as documented) at patient's floor/unit and/or counseling patient: Coding Level of Care Code None Diagnoses Sepsis A41.9 Hypotension I95.9 Prostatitis N41.9 Diarrhea R19.7 Comment patient seen same day therefore will not be billing for this encounter
[2023-01-11] MEDS ORDERED: LOPERAMIDE HCL 2 MG CAP PO STA (20:36)
[2023-01-11] MEDS ORDERED: LOPERAMIDE HCL 2 MG CAP PO PRN (21:35)
[2023-01-11] MEDS: VANCOMYCIN HCL 1,000 MG in SODIUM CHLORIDE 0.9% 250 ML IV SCH (21:54)
[2023-01-12] MEDS: PIPERACILLIN/TAZOBACTAM 4.5 GM in DEXTROSE 5% MINI-B 100 ML IV SCH ×3 (00:33→16:33)
[2023-01-12] MEDS: ACETAMINOPHEN 325 MG TAB PO PRN ×2 (03:39→12:09)
[2023-01-12 05:28] LABS: Hematocrit (blood only) 29.7 % (42.0-52.0); Hemoglobin 10.1 g/dl (14.0-18.0); Mean Corpuscular Hemoglobin 28.9 pg (25.0-34.0); Mean Corpuscular Volume 85.1 fL (80.0-100.0); Mean Platelet Volume 10.3 fL (9.4-12.4); Platelet Count 124 K/uL (130-400); RDW Coefficient of Variation 12.2 % (11.5-14.5); RDW Standard Deviation 37.7 fL (36.4-46.3); Red Blood Count 3.49 M/uL (4.70-6.10); White Blood Count 6.96 K/ul (4.8-10.8)
[2023-01-12 05:40] LABS: BUN Creatinine Ratio 10.7 (10-20); Bilirubin Direct 0.1 mg/dl (0-0.2); Bilirubin,Total 0.6 mg/dl (0.2-1.0); Calcium 7.7 mg/dl (8.6-10.3); Creatinine Clr Calc Pharmacy 72.8 ml/min; Est GFR (African American) 87.9 ml/min; Est GFR (Non-African American) 75.8 ml/min; Potassium 3.4 mmol/L (3.5-5.1); Total Protein 5.3 gm/dl (6.0-8.3)
--- NOTE | 2023-01-12 07:18 | Electrocardiogram Report ---
Test Reason : Blood Pressure : / mmHG Vent. Rate : 083 BPM Atrial Rate : 083 BPM P-R Int : 142 ms QRS Dur : 068 ms QT Int : 344 ms P-R-T Axes : 005 -24 013 degrees QTc Int : 404 ms Lefl leg/ L arm lead reversal Otherwise normal ECG When compared with ECG of 06-DEC-2022 10:31, No significant change taking into account lead reversal Confirmed by Car Gee ([id number]) on 01/12/2023 7:17:26 AM Referred By: REFERRED SELF Confirmed By:Car Gee
[2023-01-12] MEDS: LACTATED RINGER'S 1,000 ML IV SCH (08:01)
[2023-01-12] MEDS: VANCOMYCIN HCL 1,000 MG in SODIUM CHLORIDE 0.9% 250 ML IV SCH (08:01)
[2023-01-12 12:31] LABS: Chlam trach RNA(Genit,Ureth,Ur Not Detected (NotDetected); GC(Neis gon)RNA(Genit,Ureth,Ur Not Detected (NotDetected)
--- NOTE | 2023-01-12 17:14 | Discharge Summary ---
Date of Service January 12, 2023 Admission HPI Per Admitting Provider Rufina Sloan is a pleasant 37yo male with no significant past medical or surgical history presenting with hypotension. Patient reports having some perineal, penile/testicular and pelvic pain for the last several days. He was seen by his PCPon 01/10/23 and had a urine sample obtained which revealed some hematuria. He was ultimately prescribed Bactrim BID x 4 week course for presumed prostatitis. Patient was overall feeling well today although he didn't eat much. At dinner he ate chacko pie with his family and took his first dose of Bactrim. Shortly after, around 19:45, he developed nausea with estimated 15-16 episodes of non-bloody/non-bilious vomiting as well as multiple episodes of watery diarrhea (every 10 minutes). His friend accompanied him to the ER. While in the waiting room the patient de veloped chills and rigors as well as pain in his back. He reports feeling dizzy as well. Otherwise denies fever, chest pain, cough, SOB. His family ate the same dinner and is not ill. No sick contacts. Has never been on Bactrim before. In the ER he was found to be hypotensive - BP 78/45. He has since been given 3L NSS with some blood pressure improvement - last measurement 88/45, similar in b oth extremities ER Course: NSS x 3L Zofran 4m IV Tylenol 1gm Zosyn 4.5gm Admission Exam Per Admitting Provider General: patient appears ill, oriented x 4, answering questions appropriately and following commands. Occasional rigors. Skin: warm, dry, intact, no rashes or lesions HEENT: NC/AT, PERRL, EOMI, anicteric sclera, +conjunctival injection bilaterally, external ear normal to inspection and nontender, nares patent, dry lips and mucus membranes, dentition intact, no oropharyngeal lesions, neck supple, trachea midline, no LAD, no thyromegaly, no JVD Heart: +S1/S2, regular, tachycardic, no m/r/g Lungs: equal air entry bilaterally, no rales/rhonchi/wheezes Abd: +BS, soft, ND, tender in pelvic region without rebound/guarding/peritoneal signs, no masses/organomegaly/ascites Ext: warm, 2+ pulses in UE/LE bilaterally, no clubbing/cyanosis or edema Neuro: nonfocal, patient AA&O x 4, speech intact, no facial droop, moving all extremities on command with equal strength 5/5 Principal Diagnosis Hypotension Discharge Exam General: Well-appearing, NAD HEENT: Normal conjunctivae Cardiovascular: RRR, no M/R/G Pulmonary: CTAB, no W/R/R Abdomen: Soft, NT/ND, no guarding : Normal external skin exam of genitalia and perineum Extremities: Moving all extremities, no pedal edema Integumentary: No suspicious rash or lesion on exposed skin and genitalia Neurologic: AAOx3, no focal deficits Psychiatric: Appropriate mood/affect Discharge Data Allergies Allergy/AdvReac Type Severity Reaction Status Date / Time No Known Allergies Allergy Verified 01/10/23 22:16 Consultations 01/11/23 02:01 ED Decision to Admit Stat Ordered Studies 01/10/23 22:16 CT abd pelvis wo con Stat Hospital Course (1) Diarrhea: (2) Prostatitis: (3) Sepsis: (4) Hypotension: Plan #Hypotension: Suspected sepsis with source prostatitis/urine Also contribution from dehydration related to GI losses Initially Ceftriaxone --> Vanc/Zosyn given significantly elevated procalcitonin and low MAP No anal sexual intercourse Chlamydia/gonorrhea tests neg PSA normal UCx and BCx NGTD - possibly artificially neg due to prior outpatient dose of Bactrim Patient continued to have low grade fevers and soft BP but insisted on discharge as he was feeling better. After extensive conversation, patient was discharged with strict return precautions Discharged on 6wk course of ciprofloxacin and encouraged hydration #Vomiting/Diarrhea: Occurred after original pelvic pain. Suspect secondary to antibiotics +/- food poisoning Stool Biofire and c. diff PCR negative Loperamide PRN Encouraged hydration Will need ongoing follow up outpatient Total Time Total Time Spent Total Time Spent (In Minutes): 35 Total Time Includes: Examination of the Patient, Discharge Planning and Medication Reconciliation Discharge Plan Discharge Items Patient Disposition: Home - Self-Care Reason For Visit: HYPOTENSION Discharge Diagnosis: Hypotension Activity: Resume your previous activity Sexual Activity: When tolerated Non-emergency contact: Primary Care Provider Call non-emergency contact if: you have any medication questions and your symptoms worsen Follow-up/Referrals: [facility] [Primary Care Provider] - Diet: Regular Addtl Attending Provider Instructions: You presented to the hospital with a low blood pressure. This was felt to be due to dehydration from the vomiting and diarrhea plus having an infection suspected in the prostate. The vomiting and diarrhea could have been from food poisoning, a viral illness, or even related to the illness from a prostate infection. You were treated with IV antibiotics and fluids. After discharge from the hospital, stop taking the previously prescribed Bactrim. Instead, you are instructed to take ciprofloxacin 500mg 2 times per day for 6 weeks. Make sure you create a follow up appointment with your primary care doctor. Stay well hydrated upon leaving the hospital. Do not hesitate to return if your symptoms worsen again. Pending Studies at Discharge: Yes Studies:: Final urine and blood culture results Stand-Alone Forms: My [facility] Medications and DC Order Prescriptions: New ciprofloxacin HCl 500 mg tablet 500 mg PO BID 42 Days Qty: 84 0RF Discontinued sulfamethoxazole-trimethoprim 800-160 mg tablet 1 tab PO BID Discharge Orders: Discharge Order (Routine); Ordered 01/12/23 Ordered By: Leah Chao/Other Patient Handouts: Prostate Anatomy, ED Prostatitis Admission Data Admit Date/Time: 01/11/23 02:03 Attending Provider: Leah Bridges Admit Provider: Shruthi Quick Primary Care Provider: [facility] Other Providers: Shruthi Quick Other Interventions: Discharge Summary Assessment (RN) Last Done: 01/12/23 16:44 Coding Level of Care Code 31568 INP/OBS DISCH >30 MIN Diagnoses Diarrhea R19.7 Prostatitis N41.9 Sepsis A41.9 Hypotension I95.9
== END 2023-01-12 17:45 | disposition home or self-care (01) | DRG 315 ==
LOC: ED 21:25 → SUATTDRO 01-11 02:03 → 4W 01-11 02:03